=== PATIENT | male | born 1945 | race Caucasian/White ===

== ENCOUNTER → 2017-06-30 | Outpatient (CLI) | payer OTHER ==
[~2017-06-30] VITALS: Ht 177.8 cm; Wt 77.5 kg
[~2017-06-30] MED LIST: CHLORHEXIDINE GLUCONATE 2 % 1 PACK (2 CLOTHS) TOPICAL PRN; DARV PO; FISH300C2 PO; IOHEXOL 350 MG/ML 50 ML BTL (for RAD DIAG) OTHER ONE; LACTATED RINGER'S 1000 ML IV PRN; LIDOCAINE HCL 1% PF 5 ML SYRINGE OTHER ONE; LORA10TA7 PO; METOPROLOL TARTRATE 25 MG TAB PO PRN; MOME30SO TOP; POVIDONE IODINE 5% (ANTISEPSIS KIT) 4 APPLICATIONS EACH NARE PRN; PRIL10CA PO; PROPOFOL 200 MG/20 ML AMP IV ONE; SIMV20 PO; SLOW NIACIN PO; SODIUM CHLORID 0.9% 500 ML IV PRN; SULF-154 PO; SULF1TAB47 PO
--- NOTE | 2017-06-30 10:15 | EKG ---
Date Performed: 06/30/2017 Time Performed: 10:03:54 PTAGE: 72 years EKG: Sinus rhythm WITH MARKED SINUS ARRHYTHMIA INFERIOR MYOCARDIAL INFARCTION , OF INDETERMINATE AGE ABNORMAL ECG PREVIOUS TRACING : 07/15/2007 12.57 DOCTOR: Raji Cano Interpretating Date/Time 06/30/2017 10:13:53
[2017-06-30 12:57] VITALS: BP 120/63; PULSE 59; RESP 20; TEMP 98.1; O2SAT 100
--- NOTE | 2017-06-30 13:19 | PD.PROCEDR ---
GI Procedure PROCEDURE PERFORMED ERCP with sphincterotomy and balloon extraction INDICATION FOR PROCEDURE Dilated common bile duct with elevated liver function tests and jaundice PROCEDURE: The procedure, risks and benefits were discussed with Patient/POA and informed consent was obtained. Anesthesia sedated Patient with Diprivan. Patient was placed in the left lateral decubitus position. ERCP: Patient was placed in a prone position. The Pentax videoscope was introduced through the oropharynx and advanced to the second portion of the duodenum where the ampula was identified. FINDINGS: The ampulla appeared to be bulging somewhat but it was noted to be draining bile freely and we were able to obtain easy cannulation of the common bile duct which appeared to be moderately dilated to about 15 mm with filling defects noted at the distal end and so a generous sphincterotomy was performed then using the 12 mm balloon we were able to extract multiple stones and sludge the duct was then carefully lavaged and then more balloon withdrawals were done until he was finally clear the intrahepatics appeared to be unremarkable ESTIMATED BLOOD LOSS: Minimal SPECIMENS REMOVED: None COMPLICATIONS: None IMPRESSION: Choledocholithiasis PLAN: Patient follow-up in clinic in 3-4 weeks Patient to have CBC with a CMP prior office visit Barney Negrete MD Jun 30, 2017 1:19 pm
--- NOTE | 2017-06-30 13:46 | RADRPT ---
EXAM DATE/TIME: 06/30/2017 11:48 [facility] COMPARISON: No previous studies available for comparison. INDICATIONS : Obstruction, pain . FLUORO TIME: 2.39 minutes IMAGE COUNT: 6 CONTRAST: Instilled by Ordering Physician MEDICAL HISTORY : None. SURGICAL HISTORY : None. ENCOUNTER: Initial ACUITY: 1 day PAIN SCORE: Non-responsive. LOCATION: Abdomen FINDINGS: An ERCP was performed by the ordering physician. The images demonstrate filling of the common bile duct and the proximal cystic duct. No complications are noted. CONCLUSION: ERCP as above. Raji Loyola MD on June 30, 2017 at 13:42 Board Certified Radiologist. This report was verified electronically.
== END ==
LOC: HEND 09:33
PROVIDERS: ATTEND Internal Medicine Gastroenterology
DX: K80.50 Calculus of bile duct without cholangitis or cholecystitis without obstruction (principal); K83.8 Other specified diseases of biliary tract; R17 Unspecified jaundice; R79.89 Other specified abnormal findings of blood chemistry; I25.2 Old myocardial infarction
CPT/HCPCS: 00732; 43264; 74330; 93005; C1769; J7120; Q9967